=== PATIENT | female | born 1945 | race Two or more races ===

== ENCOUNTER 2020-10-11 11:38 | Outpatient (CLI) | payer OTHER | END 2020-10-11 11:44 | disposition home or self-care (01) | LOC: MRI 11:38 | PROVIDERS: ATTEND Orthopaedic Surgery | DX: M75.51 Bursitis of right shoulder (principal); M25.511 Pain in right shoulder; M75.121 Complete rotator cuff tear or rupture of right shoulder, not specified as traumatic | CPT/HCPCS: 73221 ==

== ENCOUNTER 2020-12-06 08:58 | Outpatient (CLI) | payer OTHER | END 2020-12-06 09:12 | disposition home or self-care (01) | LOC: NUCLEAR 08:58 | PROVIDERS: ATTEND Orthopaedic Surgery | DX: I73.9 Peripheral vascular disease, unspecified (principal); R60.0 Localized edema ==

== ENCOUNTER → 2020-12-08 | Outpatient (CLI) | payer OTHER | END | disposition home or self-care (01) | LOC: NUCLEAR 10:12 | PROVIDERS: ATTEND Internal Medicine | DX: I73.9 Peripheral vascular disease, unspecified (principal); R60.0 Localized edema ==

== ENCOUNTER 2025-04-21 08:45 | Inpatient (IN) | payer OTHER ==
[~2025-04-21] VITALS: Ht 266.7 cm; Wt 81.6 kg
[2025-04-21] MEDS ORDERED: ZESTRIL5 MG PO (10:07)
[2025-04-21] MEDS ORDERED: SYNTHROID75 MCG PO (10:07)
[2025-04-21] MEDS ORDERED: TOPROL XL100 M1 PO (10:07)
[2025-04-21] MEDS ORDERED: MESALAMINE800 MG PO (10:08)
[2025-04-21 10:12] VITALS: BP 112/64
[2025-04-21 10:14] LABS: URINE BACTERIA 12.2 uL (0.0-1933); URINE EPITHELIAL CELLS 16.9 uL (0.0-38.8); URINE RBC 3.3 uL (0.0-20.8); URINE WBC 25.3 uL (0.0-23.2)
[2025-04-21 10:25] LABS: PARTIAL THROMBOPLASTIN TIME 26.5 SECONDS (22.0-34.0); PROTHROMBIN TIME 10.9 SECONDS (9.0-11.5)
[2025-04-21 10:27] LABS: BASO % 0.7 % (0.1-1.2); EOS # 0.39 (0.04-0.54); EOS % 5.4 % (0.7-7.0); HEMATOCRIT 41.8 % (34.1-44.9); HEMOGLOBIN 13.4 g/dL (11.2-15.7); LYMPH # 1.62 (1.18-3.74); LYMPH % 22.3 % (19.3-53.1); MEAN CORPUSCULAR HEMOGLOBIN 28.6 pg (25.6-32.2); MONO # 0.86 (0.24-0.82); MONO % 11.8 % (4.7-12.5); NEUT # 4.34 (1.56-6.13); NEUT % 59.5 % (34.0-71.1); PLATELET COUNT 280 K/uL (163-369); RED BLOOD COUNT 4.69 M/uL (3.93-5.22); RED CELL DISTRIBUTION WIDTH 13.4 % (11.6-14.4)
[2025-04-21 10:28] LABS: URINE BILIRRUBIN NEGATIVE (NEGATIVE); URINE BLOOD NEGATIVE; URINE GLUCOSE NEGATIVE (NEGATIVE); URINE KETONE NEGATIVE (NEGATIVE); URINE LEUKOCYTE NEGATIVE; URINE NITRATE NEGATIVE; URINE PROTEIN NEGATIVE (NEGATIVE); URINE UROBILINOGEN 0.2 E.U./dl
[2025-04-21 10:38] LABS: URINE CAST 0.58 uL (0.0-1.40)
[2025-04-21 10:39] LABS: URINE APPEARANCE CLEAR; URINE COLOR YELLOW
[2025-04-21 11:03] LABS: ALBUMIN 3.6 gm/dL (3.4-5.0); BILIRUBIN TOTAL 0.9 mg/dL (0.3-1.2); CALCIUM 8.6 mg/dL (8.5-10.1); CREATININE SERUM 0.51 mg/dL (0.55-1.02); GFR 116.33; GLOBULINA 2.9 G/DL (2.4-3.5); POTASSIUM 4.42 mEq/L (3.5-5.1); TOTAL PROTEIN 6.5 gm/dL (6.4-8.2)
[2025-04-27] MEDS ORDERED: LIDOCAINE HCL 1%/EPINEPHRINE 20ML VIAL IJ ONE (07:12)
[2025-04-27] MEDS ORDERED: CEFAZOLIN SODIUM 1,000 MG VIAL ONE ×2 (07:12→13:44)
[2025-04-27] MEDS ORDERED: TRANEXAMIC ACID 100MG/1ML (1000MG) AMPUL IV ONE (07:12)
[2025-04-27] MEDS ORDERED: BUPIVACAINE HCL/MPF 0.5% 30ML VIAL ONE (07:12)
[2025-04-27] MEDS ORDERED: ISOPROPYL ALCOHOL 30 ML OUNCE TOP ONE (07:27)
[2025-04-27] MEDS ORDERED: ALENDRONATE SOD70 MG (08:02)
[2025-04-27] MEDS ORDERED: SYNTHROID175 MCG (08:45)
[2025-04-27] MEDS ORDERED: KETOROLAC TROMETHAMINE 60 MG VIAL IM ONE (08:53)
[2025-04-27] MEDS ORDERED: MORPHINE SULFATE 4 MG/ML CARTRIDGE IV ONE (09:30)
[2025-04-27] MEDS ORDERED: OxyCODONE HCL/APAP UD (PERCOCET) PO PRN (10:30)
[2025-04-27] MEDS ORDERED: ONDANSETRON HCL 2 MG/ML VIAL IV PRN (10:30)
[2025-04-27] MEDS ORDERED: MORPHINE SULFATE 4 MG/ML CARTRIDGE IV SCH (12:00)
[2025-04-27] MEDS ORDERED: CEFAZOLIN SODIUM 1,000 MG VIAL IV SCH (12:00)
[2025-04-27] MEDS ORDERED: MORPHINE SULFATE 4 MG/ML VIAL IV ONE (13:30)
[2025-04-27 14:05] VITALS: BP 116/80; O2SAT 98
[2025-04-27 16:00] VITALS: BP 118/53; O2SAT 96
[2025-04-27] MEDS ORDERED: ENALAPRILAT DIHYDRATE 1.25 MG/ML VIAL IV PRN (16:30)
[2025-04-27] MEDS ORDERED: APIXABAN 2.5 MG TABLET PO SCH (21:00)
[2025-04-27] MEDS ORDERED: GABAPENTIN 100 MG CAPSULE PO SCH (21:00)
[2025-04-27] MEDS ORDERED: ORPHENADRINE CITRATE 100 MG TABLET PO SCH (21:00)
[2025-04-27] MEDS ORDERED: ENOXAPARIN SODIUM 30 MG/0.3 ML SYRINGE SUBCUTANEO SCH (21:00)
[2025-04-28 01:08] VITALS: BP 103/61; O2SAT 99
[2025-04-28] MEDS ORDERED: LEVOTHYROXINE SODIUM 75 MCG TABLET PO SCH (06:00)
[2025-04-28 08:00] VITALS: BP 121/58; O2SAT 95
[2025-04-28 08:46] LABS: BASO % 0.4 % (0.1-1.2); EOS % 6.1 % (0.7-7.0); HEMATOCRIT 35.3 % (34.1-44.9); HEMOGLOBIN 11.6 g/dL (11.2-15.7); LYMPH # 0.76 (1.18-3.74); LYMPH % 7.7 % (19.3-53.1); MEAN CORPUSCULAR HEMOGLOBIN 28.7 pg (25.6-32.2); MONO # 1.19 (0.24-0.82); NEUT # 7.21 (1.56-6.13); NEUT % 73.3 % (34.0-71.1); PLATELET COUNT 232 K/uL (163-369); RED BLOOD COUNT 4.04 M/uL (3.93-5.22); RED CELL DISTRIBUTION WIDTH 13.5 % (11.6-14.4)
[2025-04-28 08:58] LABS: MONO % 12.1 % (4.7-12.5)
[2025-04-28] MEDS ORDERED: LISINOPRIL 5 MG TABLET PO SCH (09:00)
[2025-04-28] MEDS ORDERED: METOPROLOL SUCCINATE 100 MG TAB.SR.24H PO SCH (09:00)
[2025-04-28] MEDS ORDERED: MESALAMINE 400 MG CAP.DRTAB. PO SCH (09:00)
[2025-04-28] MEDS ORDERED: Cyanocobalamin/Mecobalamin 1 TAB.SL SL NR (13:15)
[2025-04-28 14:33] LABS: COVID-19 AG NEGATIVE (NEGATIVE)
[2025-04-28] MEDS ORDERED: VITAMIN B COMPLEX 1 EACH PO SCH (17:00)
[2025-04-28] MEDS ORDERED: SOD FERRIC GLUC COMPLX/SUCROSE 62.5 MG/5 ML AMPUL IV SCH (17:00)
[2025-04-28 17:49] VITALS: BP 135/75; O2SAT 96
[2025-04-29 01:18] VITALS: BP 149/73; O2SAT 94
[2025-04-29 05:58] VITALS: BP 143/74; O2SAT 95
[2025-04-29 07:07] LABS: BASO % 0.2 % (0.1-1.2); EOS # 0.23 (0.04-0.54); EOS % 2.4 % (0.7-7.0); HEMATOCRIT 33.3 % (34.1-44.9); HEMOGLOBIN 10.9 g/dL (11.2-15.7); LYMPH # 0.74 (1.18-3.74); LYMPH % 7.6 % (19.3-53.1); MEAN CORPUSCULAR HEMOGLOBIN 28.8 pg (25.6-32.2); MONO # 1.27 (0.24-0.82); NEUT # 7.42 (1.56-6.13); NEUT % 76.2 % (34.0-71.1); PLATELET COUNT 209 K/uL (163-369); RED BLOOD COUNT 3.79 M/uL (3.93-5.22); RED CELL DISTRIBUTION WIDTH 13.5 % (11.6-14.4)
[2025-04-29 07:36] LABS: MONO % 13.1 % (4.7-12.5)
[2025-04-29] MEDS ORDERED: Cyanocobalamin/Mecobalamin 1 TAB.SL SL SCH (09:00)
[2025-04-29] MEDS ORDERED: ELIQUIS2.5 MG PO (09:03)
[2025-04-29] MEDS ORDERED: NORFLEX100MG PO (09:03)
[2025-04-29] MEDS ORDERED: GABAPENTIN100 MG PO (09:04)
[2025-04-29] MEDS ORDERED: OXYC1TAB9 PO (09:04)
== END 2025-04-29 17:22 | disposition home or self-care (01) | DRG 470 ==
LOC: SURH 04-27 06:00 → O/R 04-27 06:00 → SURH 04-27 08:45
PROVIDERS: ADMIT Orthopaedic Surgery; ATTEND Orthopaedic Surgery
PROC: 0SRD0JZ Replacement of Left Knee Joint with Synthetic Substitute, Open Approach (ICD-10-PCS; principal; 2025-04-27 12:30)
DX: M17.12 Unilateral primary osteoarthritis, left knee (principal); D62 Acute posthemorrhagic anemia; M85.662 Other cyst of bone, left lower leg; M65.862 Other synovitis and tenosynovitis, left lower leg; I10 Essential (primary) hypertension; E03.9 Hypothyroidism, unspecified